=== PATIENT | male | born 1960 | race Two or more races ===

== ENCOUNTER 2017-06-05 19:42 | Emergency (ER) | payer BC, OTHER ==
[~2017-06-05] VITALS: Ht 177.8 cm; Wt 119.0 kg
[~2017-06-05 19:42] MED LIST: AMIT10TA PO; DOXY100T PO; IBUP800T19 PO; INSU100I17 SQ; INSU100I30 SQ; LISI10TA2 PO; METF10002 PO; METF500T4 PO; METO25TA4 PO; PREG75CA PO; SIMV5TAB5 PO
[2017-06-05] MEDS ORDERED: DOXYCYCLINE HYCLATE 100 MG TABLET PO ONE (20:30)
[2017-06-05] MEDS ORDERED: DOXY100C2 PO (20:34)
--- NOTE | 2017-06-05 20:34 | PHYS DOC ---
Past History Past Medical History: Diabetes Past Surgical History: Other Drug Use: None Adult General Chief Complaint Chief Complaint: SKIN PROBLEM HPI HPI Patient is a 57 year old F who presents with skin lesion on his scalp. Dionisio states that he first noticed this lesion about a week ago. He was seen in his primary care doctor's office and started on a topical and oral antifungal medication for her symptoms of tinea capitis. He feels that his symptoms have worsened over the past 1-2 days. He describes increased swelling, warmth and pain. He does not note drainage. He has no other associated symptoms at this time. He has no other exacerbating or alleviating factors. Review of Systems Review of Systems Constitutional: Denies fever or chills [] Eyes: Denies change in visual acuity, redness, or eye pain [] HENT: Denies nasal congestion or sore throat [] Respiratory: Denies cough or shortness of breath [] Cardiovascular: No additional information not addressed in HPI [] GI: Denies abdominal pain, nausea, vomiting, bloody stools or diarrhea [] : Denies dysuria or hematuria [] Musculoskeletal: Denies back pain or joint pain [] Integument: Negative except history of present illness Neurologic: Denies headache, focal weakness or sensory changes [] Endocrine: Denies polyuria or polydipsia [] All other systems were reviewed and found to be within normal limits, except as documented in this note. Family History Family History No pertinent family medical history was reported Current Medications Current Medications Current Medications Medications (Trade) Dose Ordered Sig/[facility] Start Time Stop Time Status Last Admin Dose Admin Doxycycline Hyclate (Vibra-Tab) 100 mg 1X ONCE 06/05/17 20:30 06/05/17 20:31 DC Allergies Allergies Allergies Coded Allergies Type Severity Reaction Last Updated Verified No Known Drug Allergies 08/10/14 No Physical Exam Physical Exam Constitutional: Well developed, well nourished, no acute distress, non-toxic appearance. [] HENT: Normocephalic, atraumatic, Eyes: EOMI, conjunctiva normal, no discharge. [] Neck: Normal range of motion, no tenderness, supple, no stridor. [] Cardiovascular:Heart rate regular rhythm, Lungs & Thorax: Bilateral breath sounds clear to auscultation [] Skin: Right frontal scalp skin lesion: Central eschar noted approximately 1 cm in diameter with surrounding erythema approximately 3 cm total diameter of lesion. Lesion is noted to be raised, erythematous, indurated and moderately tender to palpation. No flocculence is noted. Back: No tenderness, no CVA tenderness. [] Extremities: No tenderness, no cyanosis, no clubbing, ROM intact, no edema. [] Neurologic: Alert and oriented X 3, normal motor function, normal sensory function, no focal deficits noted. [] Psychologic: Affect normal, judgement normal, mood normal. [] Current Patient Data Vital Signs Vital Signs Date Time Temp Pulse Resp B/P (MAP) Pulse Ox O2 Delivery O2 Flow Rate FiO2 06/05/17 19:45 98.3 92 22 98 Room Air EKG EKG [] Radiology/Procedures Radiology/Procedures [] Course & Med Decision Making Course & Med Decision Making Pertinent Labs and Imaging studies reviewed. (See chart for details) This lesion is not consistent with a fungal infection at this time. His symptoms are more consistent with a basal cell carcinoma versus bacterial cellulitis. Dragon Disclaimer Dragon Disclaimer This electronic medical record was generated, in whole or in part, using a voice recognition dictation system. Departure Departure: Impression: Primary Impression: Cellulitis Disposition: HOME, SELF-CARE Condition: STABLE Referrals: CHRISTA DUNN MD (PCP) Patient Instructions: Cellulitis Additional Instructions: Dionisio was seen in the emergency department for skin lesion on his head. No emergency medical condition was found on history or physical exam. His wound was suspicious for infection versus basal cell carcinoma. He was started on an oral antibiotic and advised to follow-up with his primary care doctor as soon as possible for further management. He is also advised to return to the emergency room if he develops new or worsening symptoms. Scripts Doxycycline Hyclate (DOXYCYCLINE HYCLATE) 100 Mg Capsule 1 CAP PO BID for 7 Days, #14 CAP Prov: KEMI BRUNNER MD 06/05/17 Problem Qualifiers Primary Impression: Cellulitis Site of cellulitis: head Qualified Codes: L03.811 - Cellulitis of head [any part, except face] KEMI BRUNNER MD Jun 05, 2017 20:34
[2017-06-05 20:40] VITALS: BP 137/71
== END 2017-06-05 20:55 | disposition home or self-care (01) ==
LOC: ER 19:42
DX: L03.811 Cellulitis of head [any part, except face] (principal); E11.9 Type 2 diabetes mellitus without complications
CPT/HCPCS: 99283

== ENCOUNTER 2017-06-08 10:14 | Inpatient (IN) | payer BC ==
[~2017-06-08] VITALS: Ht 177.8 cm; Wt 104.6 kg
[~2017-06-08 10:14] MED LIST changes: +DOXY100C2 PO
[2017-06-08 10:46] VITALS: BP 169/95
[2017-06-08] MEDS ORDERED: DEXTROSE 50% 25 GM / 50ML DISP.SYRIN. IV PRN (12:00)
[2017-06-08] MEDS ORDERED: PIP/TAZO PER PHARMACY MC PRN (12:00)
[2017-06-08] MEDS ORDERED: LISI-334 PO (12:31)
[2017-06-08 12:33] LABS: ALBUMIN 2.5 g/dL (3.4-5.0); ALBUMIN/GLOBULIN RATIO 0.5 (1.0-1.7); CALCIUM 8.8 mg/dL (8.5-10.1); CREATININE 0.7 mg/dL (0.7-1.3); GFR 117.1; MAGNESIUM 1.3 mg/dL (1.8-2.4); POTASSIUM 3.5 mmol/L (3.5-5.1); TOTAL BILIRUBIN 0.3 mg/dL (0.2-1.0); TOTAL PROTEIN 7.6 g/dL (6.4-8.2)
[2017-06-08] MEDS ORDERED: NIFE30TA17 PO (12:39)
[2017-06-08 12:47] LABS: BASO % 0 % (0-3); EOS # 0.1 x10^3/uL (0.0-0.7); EOS % 1 % (0-3); HEMATOCRIT 34.3 % (39.0-53.0); LYMPH # 1.3 x10^3/uL (1.0-4.8); LYMPH % 16 % (24-48); MEAN CORPUSCULAR HEMOGLOBIN 29 pg (25-35); MEAN CORPUSCULAR HGB CONC 35 g/dL (31-37); MEAN CORPUSCULAR VOLUME 83 fL (79-100); MONO # 0.4 x10^3/uL (0.0-1.1); MONO % 5 % (0-9); NEUT # 6.6 x10^3uL (1.8-7.7); NEUT % 78 % (31-73); PLATELET COUNT 379 x10^3/uL (140-400); RED BLOOD COUNT 4.12 x10^6/uL (4.30-5.70); RED CELL DISTRIBUTION WIDTH 12.8 % (11.5-14.5); WHITE BLOOD COUNT 8.5 x10^3/uL (4.0-11.0)
[2017-06-08] MEDS: VANCOMYCIN PER PHARMACY MC PRN (13:56)
[2017-06-08] MEDS: ENOXAPARIN 40 MG/0.4 ML DISP.SYRIN. SQ SCH (13:58)
--- NOTE | 2017-06-08 13:58 | NUR ---
Pharmacy Vancomycin Dosing Note S:Consulted to monitor and dose vancomycin started 06/08/17. O:SHALONDA BROWN is a 57 year old M with Cellulitis . Height: 5 feet, 10 inches Weight: 103.706076 kg [place] Body Weight: 73.00 Adjusted Body Weight: 85.24 Dosing Weight: Actual Other Antibiotics: ZOSYN LABS: Last BUN: 10 Last Creatinine: 0.7 Creatinine Clearance: 147.7 Last WBC: 8.5 Last Platelets: 379 Vancomycin Dosing: Loading Dose: 2000 mg x1 Dosing Weight: Actual Target Trough: 10-20 A: Initial dosing is based on height, actual weight, renal function, and indication. P: 1. Give Vancomycin 2000mg IV initially, then Vancomycin 1500 mg IV q8h. 2. Follow up Trough level on 06/09/17 at 1330. 3. Pharmacy will continue to monitor, follow and adjust therapy as needed. JOLENE BASS, [facility] 06/08/17 [id number]
[2017-06-08] MEDS: PIPERACILLIN/TAZOBACTAM 3.375 GM in IV NORMAL SALINE 50ML 50 ML IV SCH ×2 (13:59→21:21)
[2017-06-08] MEDS ORDERED: VANCOMYCIN 2 GM in IV NORMAL SALINE 500ML 500 ML IV ONE (14:00)
[2017-06-08] MEDS ORDERED: ACETAMINOPHEN 500 MG TABLET PO ONE (15:15)
[2017-06-08] MEDS ORDERED: AMITRIPTYLINE HCL 10 MG TABLET PO PRN (15:15)
[2017-06-08] MEDS: HYDROcodone/APAP 5/325MG 1 TAB TABLET PO PRN ×2 (15:22→21:23)
[2017-06-08 15:26] VITALS: BP 175/88
[2017-06-08] MEDS ORDERED: MAGNESIUM SULFATE 2GM 50 ML IV ONE (15:30)
--- NOTE | 2017-06-08 17:14 | NUR ---
Admission Pt arrived via ambulatory from Dr Bundy office at 10:27. Pt had abcess drained from right scalp and admitted for IV antibiotics.
[2017-06-08] MEDS: metFORMIN 500 MG TABLET PO SCH (17:40)
[2017-06-08] MEDS: INSULIN ASPART 300 UNITS/3 ML INSULN.PEN SQ SCH ×2 (17:44→21:32)
[2017-06-08 20:15] VITALS: BP 154/89
[2017-06-08] MEDS ORDERED: PREGABALIN 75 MG CAPSULE PO SCH (21:00)
[2017-06-08] MEDS ORDERED: INSULIN DETEMIR 300 UNITS/3 ML INSULN.PEN. SQ SCH (21:00)
[2017-06-08] MEDS ORDERED: SIMVASTATIN 20 MG TABLET PO SCH (21:00)
[2017-06-08] MEDS: METOPROLOL TART IMMED RELEASE 25 MG TABLET PO SCH (21:24)
[2017-06-08] MEDS: VANCOMYCIN 1.5 GM in IV NORMAL SALINE 500ML 500 ML IV SCH (22:16)
[2017-06-08 23:22] VITALS: BP 146/88
[2017-06-09] MEDS: PIPERACILLIN/TAZOBACTAM 3.375 GM in IV NORMAL SALINE 50ML 50 ML IV SCH ×4 (01:30→17:34)
[2017-06-09] MEDS: HYDROcodone/APAP 5/325MG 1 TAB TABLET PO PRN ×3 (05:31→18:55)
[2017-06-09] MEDS: VANCOMYCIN 1.5 GM in IV NORMAL SALINE 500ML 500 ML IV SCH ×2 (06:16→14:28)
[2017-06-09 06:20] VITALS: BP 142/87
--- NOTE | 2017-06-09 07:16 | HP ---
ADMIT DATE: 06/08/2017 The patient was also seen on 06/08/2017. This is a slightly delayed dictation. REASON FOR ADMISSION: Cellulitis of the scalp. HISTORY OF PRESENT ILLNESS: This is a 57-year-old male who was a direct admit from Dr. Humza Curtis's office where he had had knot on his scalp for a few weeks, had been prescribed antibiotics, but it kept getting bigger. Yesterday, Dr. Curtis unearth the scab and large amount of pus came out. It was also quite painful. PAST MEDICAL HISTORY: Diabetes, hypertension, cholesterol. Had not been taking his medication for some time due to insurance issues. PAST SURGICAL HISTORY: Carpal tunnel surgery, finger surgery. HABITS: No tobacco. Seldom alcohol. FAMILY HISTORY: Father of lung cancer, had also heart disease. Sister currently is on dialysis and diabetic. MEDICATIONS: Reviewed and corrected, available on the MAR. ALLERGIES: None. REVIEW OF SYSTEMS: The patient actually has lost quite a bit of weight, used to weigh 400 pounds, but has been on a diet. Otherwise, just the scalp issues has been bothering him. Denies blurred vision or sore throat, fever, chest pain, shortness of breath, but does have neuropathy in his feet. OBJECTIVE: VITAL SIGNS: Blood pressure 154/89, pulse 83, temperature 98.4, respiratory 18, pulse ox 97% on room air. HEENT: Hearing is normal. Eyes were clear. His nose was patent. Throat clear. Scalp has about a dime size,0 round depression/crater with some pussy like material, but no significant drainage. It is erythematous and tender around it. NECK: Supple, without adenopathy. LUNGS: Clear to auscultation. CARDIOVASCULAR: Regular rhythm and rate. ABDOMEN: Soft, nontender. EXTREMITIES: Without edema. LABORATORY DATA: Hemoglobin 12.0, hematocrit 34.3. Chemistry: Glucose is significantly elevated in the 300s. Magnesium was 1.3, alkaline phosphatase 360. Albumin 2.5. ASSESSMENT: 1. Right scalp abscess. Await cultures. He will be placed on antibiotics. 2. Poorly controlled type 2 diabetes. We will adjust. 3. Hypomagnesemia. We will replace. 4. Severe protein calorie malnutrition. Dietary see him. 5. Hypertension. We will monitor. 6. Hypercholesterolemia, present on admission. JOSH VIZCARRA DO DR: SIRENA/todd JOB#: [id number] / [id number]
[2017-06-09 07:28] LABS: BASO % 0 % (0-3); EOS # 0.2 x10^3/uL (0.0-0.7); EOS % 2 % (0-3); HEMATOCRIT 28.8 % (39.0-53.0); LYMPH # 1.5 x10^3/uL (1.0-4.8); LYMPH % 21 % (24-48); MEAN CORPUSCULAR HEMOGLOBIN 29 pg (25-35); MEAN CORPUSCULAR HGB CONC 35 g/dL (31-37); MEAN CORPUSCULAR VOLUME 83 fL (79-100); MONO # 0.5 x10^3/uL (0.0-1.1); MONO % 7 % (0-9); NEUT # 5.2 x10^3uL (1.8-7.7); NEUT % 70 % (31-73); PLATELET COUNT 352 x10^3/uL (140-400); RED BLOOD COUNT 3.45 x10^6/uL (4.30-5.70); RED CELL DISTRIBUTION WIDTH 12.8 % (11.5-14.5); WHITE BLOOD COUNT 7.5 x10^3/uL (4.0-11.0)
[2017-06-09 07:44] LABS: ALBUMIN 2.1 g/dL (3.4-5.0); ALBUMIN/GLOBULIN RATIO 0.5 (1.0-1.7); CALCIUM 8.4 mg/dL (8.5-10.1); CREATININE 0.6 mg/dL (0.7-1.3); GFR 139.9; MAGNESIUM 1.6 mg/dL (1.8-2.4); POTASSIUM 3.3 mmol/L (3.5-5.1); TOTAL BILIRUBIN 0.3 mg/dL (0.2-1.0); TOTAL PROTEIN 6.6 g/dL (6.4-8.2)
[2017-06-09] MEDS ORDERED: INSULIN DETEMIR 300 UNITS/3 ML INSULN.PEN. SQ SCH (08:00)
[2017-06-09] MEDS: metFORMIN 500 MG TABLET PO SCH ×2 (08:46→17:18)
[2017-06-09] MEDS: METOPROLOL TART IMMED RELEASE 25 MG TABLET PO SCH (08:46)
[2017-06-09] MEDS: INSULIN ASPART 300 UNITS/3 ML INSULN.PEN SQ SCH ×6 (08:55→17:22)
[2017-06-09] MEDS ORDERED: PNEUMOC CONJ VACC 23-VALENT 0.5 ML VIAL. VAX IM ONE (09:00)
[2017-06-09] MEDS ORDERED: LISINOPRIL 20 MG TABLET PO SCH (09:00)
[2017-06-09 10:37] VITALS: BP 172/83
[2017-06-09] MEDS: ENOXAPARIN 40 MG/0.4 ML DISP.SYRIN. SQ SCH (12:25)
[2017-06-09 14:07] LABS: VANC TR 18.3 mcg/mL (10.0-20.0)
[2017-06-09 14:18] VITALS: BP 147/78
[2017-06-09] MEDS: VANCOMYCIN PER PHARMACY MC PRN (14:32)
--- NOTE | 2017-06-09 14:33 | NUR ---
Pharmacy Vancomycin Dosing Note S:Consulted to monitor and dose vancomycin started 06/08/17. O:SHALONDA BROWN is a 57 year old M with Abscess on head. Height: 5 feet, 10 inches Weight: 104.122034 kg [place] Body Weight: 73.00 Adjusted Body Weight: 85.24 Dosing Weight: Actual Other Antibiotics: ZOSYN LABS: Last BUN: 13 Last Creatinine: 0.6 Creatinine Clearance: 168.5 Last WBC: 7.5 Last Platelets: 352 Drug Levels: Last Trough level: 18.3 on 06/09/17 at 1330 Vancomycin Dosing: Loading Dose: 2000 mg x1 Dosing Weight: Actual Target Trough: 10-20 A: Based on today's trough of 18.3, we will continue the same dose and frequency. P: 1. Continue Vancomycin 1500 mg IV q8h 2. Follow up trough level in 5-7 days, or sooner if indicated. 3. Pharmacy will continue to monitor, follow and adjust therapy as needed. JOLENE BASS, [facility] 06/09/17 [id number]
--- NOTE | 2017-06-09 15:45 | NUR ---
wound care patient seen per wound care consult. see wound assessment. patient has an open abscess on the top of the head, the wound was cleaned and the area was able to measure a depth of 1.0 cm, patients wound has some purulent drainage, and the vickie-wound is red and soft and with touch some purulent drainage is noted. recommendations of placing Aquacel Ag over the wound with gauze and tape, change daily. recommendations of a surgical consult for possible I & D. spoke with Dr. Nolan about the recommendations, and wound care will continue to f/u for possible changes.
--- NOTE | 2017-06-09 17:14 | DS ---
DATE OF DISCHARGE: 06/09/2017 DISCHARGE DIAGNOSES: 1. Right scalp abscess, worsening. 2. Poorly controlled type 2 diabetes, insulin added. 2. Hypomagnesemia. 3. Severe protein-calorie malnutrition. 4. Hypertension. 5. Hypercholesterolemia. HOSPITAL COURSE: A 57-year-old male who had an abscess on his scalp that was opened and drained by Dr. Curtis. The culture is growing out Staph aureus and he has been on Zosyn and vancomycin and, although the area on the scalp was getting worse, so he is now going to be transferred to [facility] and DrYeison has accepted. JOSH VIZCARRA DO DR: SIRENA/todd JOB#: [id number] / [id number]
--- NOTE | 2017-06-09 19:13 | NUR ---
EMS here to get patient, belongings sent with patient. Patient stable on discharge. Report had already been called prior to discharge to [facility].
== END 2017-06-09 19:14 | disposition short-term general hospital (02) | DRG 602 ==
LOC: 1 SOUTH 10:14
PROVIDERS: ADMIT Family Medicine; ATTEND Family Medicine
DX: L02.811 Cutaneous abscess of head [any part, except face] (principal); E43 Unspecified severe protein-calorie malnutrition; E11.65 Type 2 diabetes mellitus with hyperglycemia; E83.42 Hypomagnesemia; I10 Essential (primary) hypertension; E78.00 Pure hypercholesterolemia, unspecified; B95.61 Methicillin susceptible Staphylococcus aureus infection as the cause of diseases classified elsewhere; Z80.1 Family history of malignant neoplasm of trachea, bronchus and lung; Z83.3 Family history of diabetes mellitus; Z68.33 Body mass index [BMI] 33.0-33.9, adult; Z82.49 Family history of ischemic heart disease and other diseases of the circulatory system
CPT/HCPCS: 36415; 80053; 80202; 82947; 83735; 85025; 87070; 87186; 90732; J1650; J1815; J2543; J3370; J3475; J7040

== ENCOUNTER → 2017-06-24 | Outpatient (CLI) | payer BC ==
[2017-06-09 14:18] VITALS: BP 147/78
[~2017-06-24] MED LIST changes: +LISI-334 PO; +NIFE30TA17 PO
--- NOTE | 2017-06-24 16:43 | RAD ---
Pelvis with left hip, 3 views, 06/24/2017: History: Pelvic and left hip pain No fracture or destructive bony lesion is seen. The hip joint spaces are well-maintained. There are mild sclerotic changes at the sacroiliac joints. Scattered vascular calcifications are present. There is mild degenerative change in the lower lumbar spine. IMPRESSION: No acute pelvic or left hip abnormality is detected.
== END | disposition home or self-care (01) ==
LOC: DXRAD 15:43
PROVIDERS: ATTEND Family Medicine
DX: M53.3 Sacrococcygeal disorders, not elsewhere classified (principal); M25.552 Pain in left hip; R10.2 Pelvic and perineal pain
CPT/HCPCS: 73502

== ENCOUNTER → 2019-06-15 | Outpatient (CLI) | payer OTHER ==
[~2019-06-15] MED LIST changes: -METF10002 PO; +METF10007 PO; +METF500T16 PO; -METF500T4 PO; -NIFE30TA17 PO; +NIFE30TA95 PO; +SIMV5TAB14 PO; -SIMV5TAB5 PO
--- NOTE | 2019-06-15 15:23 | RAD ---
3 views of each shoulder without comparison for shoulder pain. FINDINGS: There is no fracture, dislocation, or acute osseous abnormality involving either shoulder. There are small glenoid osteophytes bilaterally. There is a dystrophic calcification along the bicipital groove of the left humerus. Acromioclavicular joints demonstrate mild osteoarthritis. IMPRESSION: 1. No fracture or acute osseous abnormality of either shoulder. 2. Mild degenerative changes as described. Electronically signed by: Michael Mott MD (06/15/2019 3:20 PM) [id number]
== END ==
LOC: DXRAD 14:05
PROVIDERS: ATTEND Orthopaedic Surgery
DX: M19.012 Primary osteoarthritis, left shoulder (principal); M19.011 Primary osteoarthritis, right shoulder; M25.812 Other specified joint disorders, left shoulder; M25.712 Osteophyte, left shoulder; M25.711 Osteophyte, right shoulder
CPT/HCPCS: 73030